=== PATIENT | male | born 1975 | race Caucasian/White ===

== ENCOUNTER 2017-01-26 20:34 | Emergency (ER) | payer SELFPAY ==
[~2017-01-26] VITALS: Ht 182.9 cm; Wt 97.1 kg
[2017-01-26 20:50] VITALS: BP 130/82
[2017-01-26] MEDS ORDERED: LIDOCAINE 1%, 20ML SQ ONE (22:30)
[2017-01-26] MEDS ORDERED: HYDROmorphone 1 MG/ML, 1ML IVPush PRN (22:30)
[2017-01-26] MEDS ORDERED: SODIUM CHLORIDE FLUSH 10ML SYR IVF ONE (22:30)
[2017-01-26] MEDS ORDERED: CLINDAMYCIN PMX 600MG/50ML 50 ML IVPB ONE (22:30)
[2017-01-26] MEDS ORDERED: SODIUM CHLORIDE 0.9% 1,000ML IVBOLUS ONE (22:30)
[2017-01-26] MEDS ORDERED: ONDANSETRON 2MG/ML, 2ML IVPush ONE (22:30)
[2017-01-26] MEDS ORDERED: CLINDAMYCIN PMX 600MG/50ML 50 ML ONE (22:49)
[2017-01-26 22:56] LABS: BLOOD UREA NITROGEN 29 mg/dL (7-18)
[2017-01-26 23:01] LABS: ASPARTATE AMINO TRANSFERASE 46 U/L (15-37)
[2017-01-26] MEDS ORDERED: PROPOFOL 10 MG/ML, 20ML ONE (23:05)
[2017-01-26] MEDS ORDERED: LIDOCAINE 1%, 20ML ONE (23:22)
== END 2017-01-27 01:11 | disposition home or self-care (01) ==
LOC: ED 23:59
DX: L03.311 Cellulitis of abdominal wall (principal); F11.10 Opioid abuse, uncomplicated
CPT/HCPCS: 10061; 36415; 76705; 80053; 85025; 87040; 96365; 99152; 99153; 99285; J3490; J7030